=== PATIENT | male | born 1960 | race Hispanic/Latino ===

== ENCOUNTER 2023-01-15 00:05 | Observation (INO) | payer OTHER ==
[~2023-01-15] VITALS: Ht 157.5 cm; Wt 104.3 kg
[2023-01-15 00:27] LABS: BASOPHILS % 0.7 % (0.0-1.0); EOSINOPHILS # (AUTO) 0.3 (0.0-0.4); EOSINOPHILS % 7.4 % (0.0-6.0); HEMATOCRIT 41.6 % (38.2-49.6); HEMOGLOBIN 14.1 g/dL (14.0-18.0); LYMPHOCYTES # (AUTO) 1.3 (1.0-3.2); LYMPHOCYTES % 29.7 % (18.0-39.1); MEAN CORPUSCULAR HEMOGLOBIN 30.8 pg (28-32); MEAN CORPUSCULAR HGB CONC 33.9 g/dL (31-35); MEAN CORPUSCULAR VOLUME 90.8 fL (81-99); MONOCYTES # (AUTO) 0.5 (0.2-0.8); MONOCYTES % 12.6 % (4.4-11.3); NEUTROPHILS # (AUTO) 2.1 (2.1-6.9); NEUTROPHILS % 49.6 % (38.7-80.0); PLATELET COUNT 96 x10e3/uL (140-360); RED BLOOD COUNT 4.58 x10e6/uL (4.3-5.7); RED CELL DISTRIBUTION WIDTH 14.5 % (11.7-14.4)
[2023-01-15 00:47] LABS: ALBUMIN 3.4 g/dL (3.5-5.0); ALBUMIN/GLOBULIN RATIO 0.8 (0.8-2.0); ANION GAP 16.7 mmol/L (8-16); CALCIUM 9.5 mg/dL (8.4-10.2); CREATININE, SERUM 0.77 mg/dL (0.72-1.25); POTASSIUM 3.7 mmol/L (3.5-5.1)
[2023-01-15 00:53] LABS: AMPHETAMINES SCREEN,URINE NEGATIVE (NEGATIVE); BENZODIAZEPINES SCREEN,URINE NEGATIVE (NEGATIVE); PHENCYCLIDINE SCREEN,URINE NEGATIVE (NEGATIVE)
[2023-01-15] MEDS ORDERED: SODIUM CHLORIDE 0.9% 1000ML 1,000 ML IV SCH (01:15)
[2023-01-15] MEDS ORDERED: LACTULOSE SYRUP 20 GM/30 ML UDC PO PRN ×2 (02:00→18:15)
[2023-01-15] MEDS ORDERED: LACTULOSE SYRUP 20 GM/30 ML UDC PO SCH (02:30)
[2023-01-15] MEDS ORDERED: ACETAMINOPHEN 325 MG TAB PO PRN (11:15)
[2023-01-15] MEDS ORDERED: CLONIDINE HCL 0.1 MG TAB PO PRN (11:15)
[2023-01-15] MEDS ORDERED: ONDANSETRON HCL INJ 2MG/ML 2ML 2 MG/ML VIAL IV PRN (11:15)
[2023-01-15] MEDS ORDERED: DEXTROSE 50% SYRINGE 50 ML IV PRN (12:15)
[2023-01-15] MEDS: LOSARTAN POTASSIUM 25 MG TAB PO SCH (12:45)
[2023-01-15 15:55] VITALS: BP 137/73
[2023-01-15] MEDS: INSULIN REGULAR, HUMAN 100 UNIT/1 ML SQ SCH ×2 (16:30→22:03)
[2023-01-15] MEDS: LACTULOSE SYRUP 20 GM/30 ML UDC PO SCH (17:00)
[2023-01-15 17:03] VITALS: BP 137/73
[2023-01-15 20:00] VITALS: BP 138/81
[2023-01-15] MEDS ORDERED: LISINOPRIL10 MG PO (20:06)
[2023-01-15] MEDS ORDERED: ROSUVASTATIN CA20 MG PO (20:06)
[2023-01-15] MEDS ORDERED: METFORMIN HCL500 MG PO (20:06)
[2023-01-15 21:00] VITALS: BP 138/81
[2023-01-15] MEDS: RIFAXIMIN 550 MG TABLET PO SCH (21:47)
[2023-01-16 00:22] VITALS: BP 126/84
[2023-01-16 04:51] VITALS: BP 158/83
[2023-01-16 04:53] VITALS: BP 131/77
[2023-01-16 06:26] LABS: BASOPHILS % 0.7 % (0.0-1.0); EOSINOPHILS # (AUTO) 0.3 (0.0-0.4); HEMATOCRIT 34.6 % (38.2-49.6); HEMOGLOBIN 12.3 g/dL (14.0-18.0); LYMPHOCYTES # (AUTO) 0.8 (1.0-3.2); LYMPHOCYTES % 30.2 % (18.0-39.1); MEAN CORPUSCULAR HEMOGLOBIN 33.5 pg (28-32); MEAN CORPUSCULAR HGB CONC 35.5 g/dL (31-35); MEAN CORPUSCULAR VOLUME 94.3 fL (81-99); MONOCYTES # (AUTO) 0.5 (0.2-0.8); MONOCYTES % 16.9 % (4.4-11.3); NEUTROPHILS # (AUTO) 1.2 (2.1-6.9); NEUTROPHILS % 42.8 % (38.7-80.0); PLATELET COUNT 63 x10e3/uL (140-360); RED BLOOD COUNT 3.67 x10e6/uL (4.3-5.7); RED CELL DISTRIBUTION WIDTH 15.1 % (11.7-14.4)
[2023-01-16 06:36] LABS: ALBUMIN 2.9 g/dL (3.5-5.0); ALBUMIN/GLOBULIN RATIO 0.9 (0.8-2.0); ANION GAP 11.7 mmol/L (8-16); CALCIUM 8.8 mg/dL (8.4-10.2); CREATININE, SERUM 0.75 mg/dL (0.72-1.25); POTASSIUM 3.7 mmol/L (3.5-5.1)
[2023-01-16] MEDS: INSULIN REGULAR, HUMAN 100 UNIT/1 ML SQ SCH ×2 (07:30→12:20)
[2023-01-16 08:00] VITALS: BP 138/81
[2023-01-16 09:54] VITALS: BP 134/86
[2023-01-16] MEDS: LACTULOSE SYRUP 20 GM/30 ML UDC PO SCH (09:58)
[2023-01-16] MEDS: RIFAXIMIN 550 MG TABLET PO SCH (09:59)
[2023-01-16] MEDS: LOSARTAN POTASSIUM 25 MG TAB PO SCH (09:59)
[2023-01-16] MEDS ORDERED: XIFAXAN550 MG PO (10:59)
[2023-01-16] MEDS ORDERED: LACTULOSE20 GM/30 M PO (10:59)
[2023-01-16] MEDS ORDERED: COZAAR25 MG PO (10:59)
[2023-01-16 12:26] VITALS: BP 138/77
[2023-01-16] MEDS ORDERED: ONDANSETRON HCL 4 MG ORAL DISINTEGRATING TAB PO PRN (12:30)
== END 2023-01-16 12:43 | disposition home or self-care (01) ==
LOC: ER 00:16 → ERHOLD 01:13 → MED/SURG2 13:51
PROVIDERS: ADMIT Internal Medicine; ATTEND Internal Medicine
DX: K76.82 Hepatic encephalopathy (principal); I10 Essential (primary) hypertension; U07.1 COVID-19; E80.6 Other disorders of bilirubin metabolism; K70.30 Alcoholic cirrhosis of liver without ascites; F10.288 Alcohol dependence with other alcohol-induced disorder; E78.00 Pure hypercholesterolemia, unspecified
CPT/HCPCS: 36415; 70450; 76705; 80053; 80307; 80320; 82140; 82948; 85025; 93005; 99284; G0378; J7030

== ENCOUNTER 2023-04-07 15:10 | Inpatient (IN) | payer OTHER, MEDICARE ==
[~2023-04-07] VITALS: Ht 167.6 cm; Wt 107.0 kg
[~2023-04-07 15:10] MED LIST: COZAAR25 MG PO; LACTULOSE20 GM/30 M PO; LISINOPRIL10 MG PO; METFORMIN HCL500 MG PO; ROSUVASTATIN CA20 MG PO; XIFAXAN550 MG PO
[2023-04-07] MEDS ORDERED: KETOROLAC TROMETHAMINE 30 MG/ML VIAL IV STA (15:24)
[2023-04-07] MEDS ORDERED: SODIUM CHLORIDE 0.9% 1000ML 1,000 ML IV SCH (15:30)
[2023-04-07 15:43] LABS: BASOPHILS % 0.2 % (0.0-1.0); EOSINOPHILS # (AUTO) 0.1 (0.0-0.4); EOSINOPHILS % 1.3 % (0.0-6.0); LYMPHOCYTES # (AUTO) 0.3 (1.0-3.2); LYMPHOCYTES % 6.2 % (18.0-39.1); MEAN CORPUSCULAR HEMOGLOBIN 30.4 pg (28-32); MEAN CORPUSCULAR HGB CONC 34.2 g/dL (31-35); MEAN CORPUSCULAR VOLUME 88.8 fL (81-99); MONOCYTES # (AUTO) 0.3 (0.2-0.8); MONOCYTES % 6.8 % (4.4-11.3); NEUTROPHILS % 85.3 % (38.7-80.0); PLATELET COUNT 64 x10e3/uL (140-360); RED BLOOD COUNT 4.28 x10e6/uL (4.3-5.7); RED CELL DISTRIBUTION WIDTH 13.5 % (11.7-14.4)
[2023-04-07 15:54] LABS: CLARITY,URINE SL CLOUDY (CLEAR); COLOR,URINE AMBER (YELLOW); KETONES,URINE TRACE (NEGATIVE); LEUKOCYTE ESTERASE ,URINE TRACE (NEGATIVE); NITRITE,URINE NEGATIVE (NEGATIVE); PROTEIN,URINE DIPSTICK NEGATIVE (NEGATIVE); URINE UROBILINOGEN 2 mg/dL (0.2 - 1)
[2023-04-07 15:59] LABS: ALBUMIN/GLOBULIN RATIO 0.8 (0.8-2.0); ANION GAP 12.8 mmol/L (8-16); CALCIUM 8.7 mg/dL (8.4-10.2); CREATININE, SERUM 0.77 mg/dL (0.72-1.25); POTASSIUM 3.8 mmol/L (3.5-5.1)
[2023-04-07 16:05] LABS: BACTERIA,URINE MODERATE /HPF
[2023-04-07] MEDS ORDERED: LACTATED RINGER'S 1,000 ML INJ ONE (16:45)
[2023-04-07] MEDS ORDERED: ASPIRIN 81 MG CHEW TAB PO ONE (17:00)
[2023-04-07 17:50] VITALS: PULSE 111; RESP 18; O2SAT 99
[2023-04-07] MEDS: SODIUM CHLORIDE 0.9% 1000ML 1,000 ML IV SCH (20:47)
[2023-04-07] MEDS ORDERED: ACETAMINOPHEN 325 MG TAB PO PRN (21:30)
[2023-04-07] MEDS ORDERED: ONDANSETRON HCL INJ 2MG/ML 2ML 2 MG/ML VIAL IV PRN (21:30)
[2023-04-08] VITALS (12 sets, daily range): BP systolic 122–143; BP diastolic 66–75; PULSE 72–84; RESP 17–20; TEMP 98.1–99.1; O2SAT 97–100
[2023-04-08] MEDS: SODIUM CHLORIDE 0.9% 1000ML 1,000 ML IV SCH ×2 (01:52→08:20)
[2023-04-08] MEDS ORDERED: FUROSEMIDE40 MG PO (01:54)
[2023-04-08 04:56] LABS: BASOPHILS % 0.2 % (0.0-1.0); EOSINOPHILS # (AUTO) 0.1 (0.0-0.4); EOSINOPHILS % 2.4 % (0.0-6.0); HEMATOCRIT 34.5 % (38.2-49.6); HEMOGLOBIN 11.5 g/dL (14.0-18.0); LYMPHOCYTES # (AUTO) 0.7 (1.0-3.2); LYMPHOCYTES % 17.4 % (18.0-39.1); MEAN CORPUSCULAR HEMOGLOBIN 30.2 pg (28-32); MEAN CORPUSCULAR HGB CONC 33.3 g/dL (31-35); MEAN CORPUSCULAR VOLUME 90.6 fL (81-99); MONOCYTES # (AUTO) 0.7 (0.2-0.8); NEUTROPHILS # (AUTO) 2.7 (2.1-6.9); NEUTROPHILS % 63.5 % (38.7-80.0); PLATELET COUNT 54 x10e3/uL (140-360); RED BLOOD COUNT 3.81 x10e6/uL (4.3-5.7); RED CELL DISTRIBUTION WIDTH 13.6 % (11.7-14.4)
[2023-04-08 05:13] LABS: ANION GAP 11.4 mmol/L (8-16); CREATININE, SERUM 0.56 mg/dL (0.72-1.25); POTASSIUM 3.4 mmol/L (3.5-5.1)
[2023-04-08] MEDS: LACTULOSE SYRUP 20 GM/30 ML UDC PO SCH ×2 (08:19→16:25)
[2023-04-08] MEDS: RIFAXIMIN 550 MG TABLET PO SCH ×2 (08:19→16:26)
[2023-04-08] MEDS: LOSARTAN POTASSIUM 25 MG TAB PO SCH (08:20)
[2023-04-08] MEDS ORDERED: CRESTOR 10MG PO SCH (09:00)
[2023-04-09] VITALS: BP 119/64; PULSE 81; RESP 20; TEMP 98.4; O2SAT 96
[2023-04-09 04:00] VITALS: BP 131/84; PULSE 90; RESP 18; TEMP 99; O2SAT 98
[2023-04-09 07:43] VITALS: BP 110/70; PULSE 73; RESP 18; TEMP 98.8; O2SAT 97
[2023-04-09] MEDS: RIFAXIMIN 550 MG TABLET PO SCH (08:06)
[2023-04-09] MEDS: LACTULOSE SYRUP 20 GM/30 ML UDC PO SCH (08:06)
[2023-04-09] MEDS: LOSARTAN POTASSIUM 25 MG TAB PO SCH (08:07)
[2023-04-09 08:17] VITALS: BP 100/70; PULSE 73; RESP 18; TEMP 98.8; O2SAT 97
[2023-04-09 11:26] VITALS: BP 108/69; PULSE 72; RESP 20; TEMP 97.8; O2SAT 100
[2023-04-09] MEDS ORDERED: CIPRO500 MG PO (15:23)
[2023-04-09 15:33] VITALS: BP 114/79; PULSE 70; RESP 18; TEMP 97.7; O2SAT 100
== END 2023-04-09 17:03 | disposition home or self-care (01) | DRG 690 ==
LOC: ER 15:16 → ERHOLD 16:47 → MED/SURG 04-08 01:29 → OBSVTOIN 04-09 11:33
PROVIDERS: ADMIT Internal Medicine; ATTEND Internal Medicine
DX: N39.0 Urinary tract infection, site not specified (principal); R07.89 Other chest pain; I10 Essential (primary) hypertension; E11.9 Type 2 diabetes mellitus without complications; K74.60 Unspecified cirrhosis of liver; D69.6 Thrombocytopenia, unspecified; B96.20 Unspecified Escherichia coli [E. coli] as the cause of diseases classified elsewhere; E78.00 Pure hypercholesterolemia, unspecified; R32 Unspecified urinary incontinence; R35.0 Frequency of micturition; Z83.3 Family history of diabetes mellitus; Z82.49 Family history of ischemic heart disease and other diseases of the circulatory system; Z87.891 Personal history of nicotine dependence; Z20.822 Contact with and (suspected) exposure to COVID-19
CPT/HCPCS: 0223U; 36415; 71045; 80048; 80053; 81001; 82550; 82948; 83605; 84484; 85025; 87040; 87086; 87186; 93005; 94799; 99284; G0378; J0696; J1885; J7030